=== PATIENT | female | born 1940 ===

== ENCOUNTER 2018-10-25 10:18 | Outpatient (CLI) | payer OTHER ==
[~2018-10-25] VITALS: Ht 152.4 cm; Wt 62.6 kg
== END 2018-10-25 10:35 | disposition home or self-care (01) ==
LOC: OFIC 805 10:18
DX: R13.19 Other dysphagia (principal); J31.2 Chronic pharyngitis; H90.3 Sensorineural hearing loss, bilateral

== ENCOUNTER → 2018-11-26 | Outpatient (CLI) | payer OTHER | END | disposition home or self-care (01) | LOC: RX STUDY 11-25 09:15 | DX: J31.2 Chronic pharyngitis (principal); K21.9 Gastro-esophageal reflux disease without esophagitis; R10.13 Epigastric pain ==

== ENCOUNTER 2019-01-10 11:12 | Outpatient (CLI) | payer OTHER ==
[~2019-01-10] VITALS: Ht 152.4 cm; Wt 62.6 kg
== END 2019-01-10 11:30 | disposition home or self-care (01) ==
LOC: OFIC 805 11:12
DX: R13.19 Other dysphagia (principal); J31.2 Chronic pharyngitis; H90.3 Sensorineural hearing loss, bilateral